=== PATIENT | female | born 2000 | race Caucasian/White ===

== ENCOUNTER 2019-12-25 14:04 | Emergency (ER) | payer OTHER, SELFPAY ==
[2019-12-25 14:33] VITALS: BP 101/71; PULSE 92; RESP 16; TEMP 37.3; O2SAT 99
--- NOTE | 2019-12-25 14:53 | ED.FEMALEGU ---
HPI - Female Genitourinary General Chief complaint: Urogenital-Female Stated complaint: rash Time Seen by Provider: 12/25/19 14:47 Source: patient and RN notes reviewed Mode of arrival: ambulatory Limitations: no limitations History of Present Illness HPI Narrative: Patient presents today complaining of one-week history of dysuria, frequency, lower abdominal pressure. Denies hematuria or fever. Patient states she was treated for bacterial vaginosis for topical MetroGel 2 weeks ago. Reports her symptoms improved, but feels like they worsened again. She has been taking Azo with some relief. She is also complaining of an intermittent pruritic rash and little bumps to her forearms, face, and back. Denies any changes in household products, medications, contact with plants or animals. MD elicited complaint: dysuria Related Data Home Medications Medication Instructions Recorded Confirmed escitalopram oxalate 07/17/19 07/17/19 ergocalciferol (vitamin D2) 12/25/19 ergocalciferol (vitamin D2) 12/25/19 [Vitamin D2] hydroxyzine HCl 12/25/19 metronidazole VAGINAL 12/25/19 Allergies Allergy/AdvReac Type Severity Reaction Status Date / Time Penicillins AdvReac Vomiting Verified 07/17/19 16:40 Review of Systems Review of Systems: Narrative: CONSTITUTIONAL: Denies body aches, fever, chills, or sweats. EYES: Denies visual changes, redness, or discharge. ENT: Denies rhinorrhea, congestion, sore throat, or otalgia. CARDIOVASCULAR: Denies chest pain, palpitations, or edema. RESPIRATORY: Denies cough or dyspnea. GASTROINTESTINAL: Denies abdominal pain, nausea, vomiting, or diarrhea. GENITOURINARY: Denies hematuria. + Dysuria, frequency, lower abdominal pressure SKIN: Denies itching, or wounds. + Rash MUSCULOSKELETAL: Denies back pain, joint pain, or myalgia. NEUROLOGIC: Denies headache, numbness, tingling, or weakness. PSYCH: Denies depression or anxiety. [facility] Social History Social History Gender identity (if verbalized by the patient): Female Comments At time of signature, I have reviewed and agree with nursing past medical, surgical, social and family history unless otherwise noted. Please see nursing chart for further information. There is no relevant family history pertinent to the presenting complaint Exam Narrative: Exam Narrative: GENERAL: Well-appearing, well-nourished, and in no acute distress. HEAD: Normocephalic, atraumatic. EYES: EOMI. No redness or drainage. Conjunctivae normal. ENT: Mucous membranes pink and moist. NECK: Normal AROM. Supple. No lymphadenopathy. ABD: Nontender, no distention, bowel sounds normal,-CVAT CHEST: No respiratory distress. EXTREMITIES: Normal range of motion. No edema. SKIN: Warm, dry. Capillary refill normal. Normal skin turgor. Very faint punctate papules to the anterior bilateral forearms, left upper back, and bilateral cheeks. No facial swelling noted. No erythema, induration, or drainage. NEURO: No focal deficits. Alert and oriented x3. Gait steady. PSYCH: Normal affect. No signs of depression or anxiety. Course Vital Signs Vital signs: Vital Signs Temperature 99.1 F 12/25/19 14:33 Pulse Rate 92 12/25/19 14:33 Respiratory Rate 16 12/25/19 14:33 Blood Pressure 101/71 12/25/19 14:33 Pulse Oximetry 99 12/25/19 14:33 Temperature 99.1 F 12/25/19 14:33 Pulse Rate 92 12/25/19 14:33 Respiratory Rate 16 12/25/19 14:33 Blood Pressure 101/71 12/25/19 14:33 Pulse Oximetry 99 12/25/19 14:33 Reviewed. Pt has been instructed to follow up with his PCP regarding his elevated blood pressure today. MDM - Female Genitourinary Differential Diagnosis Differential diagnosis: Likely urinary tract infection, bacterial vaginosis, vaginitis, cystitis and other (Contact dermatitis, heat rash) Lab Data Attestation: I reviewed the patient's lab results. Labs: Urine Glucose Negative Reference Range: Negative Urin
== END 2019-12-25 15:10 | disposition home or self-care (01) ==
PROVIDERS: Emergency Provider Nurse Practitioner
DX: R21 Rash and other nonspecific skin eruption (principal); N30.00 Acute cystitis without hematuria; F32.9 Major depressive disorder, single episode, unspecified; F41.9 Anxiety disorder, unspecified
CPT/HCPCS: 81003; 87077; 87086; 87088; 87186; 99213; G0463

== ENCOUNTER 2022-06-30 19:04 | Emergency (ER) | payer OTHER, MEDICAID, SELFPAY ==
--- NOTE | ~2022-06-30 | XR_ITS ---
EXAM: XR knee RT 3V DATE: 06/30/2022 19:37 HISTORY: diffuse rt knee pain x 1 week ? etiology . COMPARISON: None available. FINDINGS: Somewhat Limited lateral view. Normal mineralization. No fracture or dislocation. No lytic or blastic lesion. Joint spaces are maintained. No erosion or periosteal change. Soft tissues within normal limits. Small knee joint effusion. IMPRESSION: No acute osseous finding in the right knee. Reviewed, dictated and finalized at location K. [employer]
--- NOTE | 2022-06-30 19:09 | ED.LOWEXIN ---
HPI - Extremity Injury (Lower) General Chief Complaint: Extremity Injury, Lower Stated Complaint: Right Knee Pain Time Seen by Provider: 06/30/22 19:09 Source: patient Mode of arrival: ambulatory Limitations: no limitations History of Present Illness HPI Narrative: Coy is a 22-year-old female patient presenting to the clinic today with right knee pain x1 week. She reports she has a deep pain within the joint. No known injury. States she has been doing a lot more squatting and lifting with her child. States that she had the same pain a couple years ago and was diagnosed with a knee effusion. Has taken some ibuprofen without relief. Pain is worse with bearing weight in if she would is in a sitting/ laying position for too long. Related Data Home Medications Medication Instructions Recorded Confirmed vits 75-iron 28 mg-folic 1 pkg PO DAILY 06/30/22 06/30/22 acid 800 mcg-omega3 440 mg oral pack Allergies Allergy/AdvReac Type Severity Reaction Status Date / Time Penicillins AdvReac Vomiting Verified 06/30/22 19:14 Review of Systems Review of Systems: Pertinent positives per HPI. Patient denies any fever, chills, rash, headache, visual changes, dizziness, cough, runny nose, sore throat, shortness of breath, chest pain, palpitations, nausea, vomiting, diarrhea, constipation, abdominal pain, or any urinary issues. PMF[facility] Social History Social History Gender identity (if verbalized by the patient): Female Comments At the time of my signature, I reviewed and agree with the nursing past medical, surgical, social, and family history. There is no relevant family history pertinent to the patient complaint. Exam Narrative: General: Well-developed, well nourished, in no apparent distress Head: Normocephalic, atraumatic. Cardio: Regular rate and rhythm, s1 and s2 normal, no murmur appreciated. Resp: Clear to auscultation bilaterally, no rhonchi, rales, wheezing or rubs. Musculoskeletal: No deformity, non-tender to palpation, no crepitus, negative anterior and posterior drawer sign, negative valgus and varus testing, grossly normal range of motion, muscle strength strong and equal, peripheral pulse strong, no edema, no cyanosis, normal gait and station Course Course Emergency Course: Portions of this record may have been created with voice recognition software. Level of Care: Express Care Visit Vital Signs Vital signs: Vital Signs Temperature 37.1 C 06/30/22 19:14 Pulse Rate 91 06/30/22 19:14 Respiratory Rate 16 06/30/22 19:14 Blood Pressure 116/68 06/30/22 19:14 Pulse Oximetry 99 06/30/22 19:14 Oxygen Delivery Room Air 06/30/22 19:14 Temperature 37.1 C 06/30/22 19:15 Pulse Rate 91 06/30/22 19:15 Respiratory Rate 16 06/30/22 19:15 Blood Pressure 116/68 06/30/22 19:15 Pulse Oximetry 99 06/30/22 19:15 Oxygen Delivery Room Air 06/30/22 19:15 Vital signs reviewed MDM - Extremity Injury (Lower) MDM Narrative Medical decision making narrative: At the time of visit patient is resting comfortably on the exam table. X-rays negative for any sign of fracture or malalignment of the right knee. A patient has acute right knee pain with unknown etiology. Will send in prescription for naproxen for pain and supportive measures were discussed. Recommend follow-up with PCP if symptoms persist she may need an MRI of her knee. Differential Diagnosis Differential diagnosis: Likely acute internal derangement of knee and other ( Knee pain) Imaging Data Radiologist's impression: Close Knee X-Ray (Signed) Yasmani Zarate - 06/30/22 [facility] [address] [address] XRay Report Signed Patient: Coy Meneses : 2000 MR#: [id number] Age/Sex: 22 / F Acct:[id number] Loc: [facility]? ? ADM Date: 0
[2022-06-30 19:14] VITALS: BP 116/68; PULSE 91; RESP 16; TEMP 37.1; O2SAT 99
[2022-06-30 19:15] VITALS: BP 116/68; PULSE 91; RESP 16; TEMP 37.1; O2SAT 99
== END 2022-06-30 19:54 | disposition home or self-care (01) ==
PROVIDERS: Emergency Provider Nurse Practitioner Family
DX: M25.561 Pain in right knee (principal)
CPT/HCPCS: 73562; 99213; G0463

== ENCOUNTER 2022-12-31 18:27 | Emergency (ER) | payer OTHER, MEDICAID, SELFPAY ==
--- NOTE | ~2022-12-31 | XR_ITS ---
EXAMINATION: XR chest 2V DATE: 12/31/2022 18:58 INDICATION: Shortness of breath. TECHNIQUE: Frontal and lateral views of the chest were obtained. COMPARISON: None. FINDINGS: The chest demonstrates clear lungs without pneumonia, pleural effusion, or pneumothorax. Th e heart size is normal. IMPRESSION: 1. No acute cardiopulmonary disease. Reviewed, dictated and finalized at location E.
[2022-12-31 18:39] VITALS: BP 92/62; PULSE 115; RESP 16; TEMP 37.7; O2SAT 100
--- NOTE | 2022-12-31 18:43 | ED.URI ---
HPI - URI/Sore Throat General Chief Complaint: Upper Respiratory Infection Stated Complaint: Fever/Sore Throat Time Seen by Provider: 12/31/22 18:43 Source: patient Mode of arrival: ambulatory Limitations: no limitations History of Present Illness HPI Narrative: 22-year-old female presents complaint of fever, fatigue, headaches, body aches and chills for 2 days. Began having sore throat , runny nose today. Reports shortness shortness of breath like having an anxiety attack for the past 2 days. no respiratory distress noted. Denies cough. Patient taking ibuprofen Tylenol to treat symptoms. denies nausea vomiting diarrhea. No urinary symptoms. All systems reviewed and negative except as noted above. Related Data Home Medications Medication Instructions Recorded Confirmed No Home Medications 12/31/22 12/31/22 Allergies Allergy/AdvReac Type Severity Reaction Status Date / Time Penicillins AdvReac Vomiting Verified 12/31/22 18:37 Review of Systems Review of Systems: CONSTITUTIONAL: Reports fever, chills, or sweats. EYES: Denies visual changes, redness, or discharge. ENT: reports rhinorrhea, congestion, sore throat. Denies otalgia. CARDIOVASCULAR: Denies chest pain, palpitations, or edema. RESPIRATORY: Denies cough. Reports dyspnea. GASTROINTESTINAL: Denies abdominal pain, nausea, vomiting, or diarrhea. GENITOURINARY: Denies dysuria or hematuria. SKIN: Denies rash or itching. MUSCULOSKELETAL: Denies back pain, joint pain. Reports myalgia. NEUROLOGIC: reports headache. Denies numbness, or weakness. PSYCHIATRIC: Denies anxiety or depression. All other systems reviewed are negative, except as documented in HPI. PMFSH Social History Social History Gender identity (if verbalized by the patient): Female Comments At time of signature, agree with nursing past medical, surgical, social and family history. There is no relevant family history pertinent to the presenting complaint. Exam Narrative: GENERAL: This is a well-nourished, well-developed patient, in no apparent distress. HEAD: normocephalic, atraumatic. EYES: PERRL. Sclera clear/white. Vision is grossly intact. EARS: External ears normal, auditory canals clear and without drainage, TMs normal without perforation. Hearing grossly intact. NOSE: External nose normal with Clear nasal drainage, nares without redness, no rhinorrhea. THROAT: Mucous membranes moist, Mild erythema posterior pharynx clear. NECK: Neck supple, non-tender without lymphadenopathy, masses or thyromegaly. CARDIOVASCULAR: tachycardia without murmurs, gallops, or rubs. RESPIRATORY: Clear to auscultation. Breath sounds equal bilaterally. No wheezes, rales, or rhonchi. SKIN: warm, Dry, intact with no suspicious lesions or rash, good texture and turgor. NEURO: awake, alert, and oriented to person, place and time. There were no obvious focal neurologic abnormalities. EXTREMITIES: No joint tenderness, effusion, or edema noted. Course Course Level of Care: Express Care Visit Vital Signs Vital signs: Vital Signs Temperature 37.7 C H 12/31/22 18:39 Pulse Rate 115 H 12/31/22 18:39 Respiratory Rate 16 12/31/22 18:39 Blood Pressure 92/62 L 12/31/22 18:39 Pulse Oximetry 100 12/31/22 18:39 Oxygen Delivery Room Air 12/31/22 18:39 Temperature 37.7 C H 12/31/22 18:39 Pulse Rate 115 H 12/31/22 18:39 Respiratory Rate 16 12/31/22 18:39 Blood Pressure 92/62 L 12/31/22 18:39 Pulse Oximetry 100 12/31/22 18:39 Oxygen Delivery Room Air 12/31/22 18:39 reviewed MDM - URI/Sore Throat MDM Narrative Medical decision making narrative: Patient is aware of diagnosis, understands and agrees to treatment plan. Anticipatory guidance given. Patient agrees to follow-up as directed and is aware of reasons to seek care at the emergency department. Portions of this record may have been created
== END 2022-12-31 19:31 | disposition home or self-care (01) ==
PROVIDERS: Emergency Provider Nurse Practitioner Family
DX: B34.9 Viral infection, unspecified (principal); Z20.822 Contact with and (suspected) exposure to COVID-19
CPT/HCPCS: 71046; 87081; 87426; 87804; 87880; 99213; C9803; G0463

== ENCOUNTER 2024-09-21 12:27 | Emergency (ER) | payer OTHER, MEDICAID, SELFPAY ==
[2024-09-21 12:37] VITALS: BP 104/62; PULSE 102; RESP 20; TEMP 37.2; O2SAT 100
--- NOTE | 2024-09-21 13:14 | ED_ITS ---
HPI - Female Genitourinary General Chief complaint: Urogenital-Female Stated complaint: STD Source: patient and RN notes reviewed Mode of arrival: ambulatory Limitations: no limitations History of Present Illness HPI Narrative: 24-year-old female presents to the [facility] complaining of perineal pain. She reports her symptoms started 1-2 weeks ago. She reports having perineal discomfort and feels irritation near her anus. She says it does not hurt to touch but she reports that there is pain after she wipes after using the restroom. She says she had unprotected anal intercourse 3-4 weeks ago. She does report she has concerns for possible STDs from a partner. She denies any dysuria, burning with urination, vaginal discharge, vaginal irritation, vaginal itching, abdominal pain, fever, or any pain with vaginal intercourse Related Data Home Medications ?Medication ?Instructions ?Recorded ?Confirmed ?Last Taken ?Type escitalopram oxalate 5 mg tablet mg 09/21/24 Unknown History Allergies Allergy/AdvReac Type Severity Reaction Status Date / Time Penicillins AdvReac Vomiting Verified 09/21/24 12:30 Review of Systems Review of Systems: CONSTITUTIONAL: Denies fever, chills, or sweats. EYES: Denies visual changes, redness, or discharge. ENT: Denies rhinorrhea, congestion, sore throat, or otalgia. CARDIOVASCULAR: Denies chest pain, palpitations, or edema. RESPIRATORY: Denies cough or dyspnea. GASTROINTESTINAL: Denies abdominal pain, nausea, vomiting, or diarrhea. GENITOURINARY: Denies dysuria, vaginal pain, vaginal discharge, pain with intercourse, or hematuria. Positive for Perineal pain. SKIN: Denies rash or itching. MUSCULOSKELETAL: Denies back pain, joint pain, or myalgia. NEUROLOGIC: Denies headache, numbness, or weakness. PSYCHIATRIC: Denies anxiety or depression. All other systems reviewed are negative, except as documented in HPI. PMFSH Social History Social History Gender identity (if verbalized by the patient): Female Comments At the time of my signature, I reviewed and agree with the nursing past medical, surgical, social, and family history. There is no relevant family history pertinent to the patient complaint. Exam Narrative: GENERAL: This is a well-nourished, well-developed adult, in no apparent distress. They are non ill-appearing, nontoxic appearing. HEAD: normocephalic, atraumatic. EYES: Sclera clear/white. Vision is grossly intact. EARS: External ears normal, Hearing grossly intact. NOSE: External nose normal THROAT: Mucous membranes moist NECK: Neck supple CARDIOVASCULAR: Regular rate and rhythm without murmurs, gallops, or rubs. RESPIRATORY: Clear to auscultation. Breath sounds equal bilaterally. No wheezes, rales, or rhonchi. GASTROINTESTINAL: Abdomen soft, non-tender, nondistended. Bowel sounds are active. No hepato-splenomegaly, or palpable masses. No guarding. GENITALURINARY: There is superficial ulcerations present to the perineum around the anus. The ulcerations to the perineum appeared to be almost healed. There is no erythema or discharge from the ulcers. There is a tampon in place in the vagina, the rest of the vulva appears intact. No vaginal discharge is present. SKIN: warm, Dry, intact with no suspicious lesions or rash, good texture and turgor. NEURO: awake, alert, and oriented to person, place and time. There were no obvious focal neurologic abnormalities. EXTREMITIES: No joint tenderness, effusion, or edema noted. Course Course Level of Care: Express Care Visit Vital Signs Vital signs: Vital Signs Temperature 99 F 09/21/24 12:37 Pulse Rate 102 H 09/21/24 12:37 Respiratory Rate 20 09/21/24 12:37 Blood Pressure 104/62 09/21/24 12:37 Pulse Oximetry 100 09/21/24 12:37 Oxygen Delivery Room Air 09/21/24 12:37 Temperature 99 F 09/21/24 12:37 Pulse Rate 102 H 09/21/24 12:37 Respiratory Rate 20 09/21/24 12:37 Blood Pressure 104/62 09/21/24 12:37 Pulse Oximetry 100 09/21/24 12:37 Oxygen Delivery Room Air 09/21/24 12:37 Reviewed MDM - Female Genitourinary MDM Narrative Medical decision making narrative: Patient's ulcerations around her perineum anus were swabbed for herpes. Some of the ulcers around the perineum appear to have healed. She will be notified of the results of her herpes swab if it is positive. Her symptoms could be from trauma from anal intercourse. She is denying any vaginal symptoms or any other symptoms for STIs or urinary issues, vaginal exam was declined. No further STI testing is indicated at this time. Since her symptoms have been lasting longer than 2 weeks no antivirals were given. Anticipatory guidance given, in ED precautions discussed. Differential Diagnosis Differential diagnosis: Likely cyst of Bartholin's gland and other (Genital herpes, Fissure, STI) Lab Data Labs: Lab Results 09/21/24 Range/Units 13:12 Herpes Virus Source Pending Herpes Simplex Culture Pending Critical Care Time Critical Care Time Critical Care Time: No Discharge Plan Discharge Clinical Impression: Perineal irritation Patient Disposition: Home, Self-Care Condition: Stable Instructions: Genital Herpes Infection (ED) Additional Instructions: Your swab has been sent to the hospital and we will notify you if it comes back positive. You may apply Vaseline to the area for any discomfort. If your symptoms change or you have any other concerns please follow-up with your PCP or Obgyn. There is some educational information provided on genital herpes. Patient Language: Frisian Prescriptions: No Action escitalopram oxalate 5 mg tablet Follow-up/Referrals: PHYSICIAN,QUARRY PLUG AND FEATHER DRILLER [Primary Care Provider] -
== END 2024-09-21 13:25 | disposition home or self-care (01) ==
DX: R10.2 Pelvic and perineal pain (principal)
CPT/HCPCS: 87140; 87255; 99213; G0463

== ENCOUNTER 2024-10-08 10:37 | Emergency (ER) | payer OTHER, MEDICAID, SELFPAY ==
[2024-10-08 10:44] VITALS: BP 116/66; PULSE 84; RESP 18; TEMP 37.3; O2SAT 100
--- NOTE | 2024-10-08 12:11 | ED_ITS ---
HPI - General Adult General Chief complaint: Unspecified Stated complaint: med refill Time Seen by Provider: 10/08/24 11:00 Source: patient and RN notes reviewed Mode of arrival: ambulatory Limitations: no limitations History of Present Illness HPI narrative: 24-year-old female presents [facility] complaining rectal pain for 2 days. Patient was seen here recently had [facility] was diagnosed with rectal braxton donita herpes. She did not receive treatment last time due to her length of symptoms and her sores were resolving. She says she is here today requesting treatment before the symptoms get worse. She denies any rectal discharge. Patient also reports vaginal discharge and itchiness. She reports her discharge is thin, white and cloudy. She denies any foul-smelling or any vaginal irritation. She denies any chance of being are any recent sexual activity since her last visit. She denies any abdominal pain, vaginal bleeding, urinary symptoms, pain with intercourse, nausea, vomiting, fevers, chills, body aches. Related Data Home Medications ?Medication ?Instructions ?Recorded ?Confirmed ?Last Taken ?Type escitalopram oxalate 5 mg tablet mg 09/21/24 Unknown History Allergies Allergy/AdvReac Type Severity Reaction Status Date / Time Penicillins AdvReac Vomiting Verified 09/21/24 12:30 Review of Systems Review of Systems: CONSTITUTIONAL: Denies fever, chills, or sweats. EYES: Denies visual changes, redness, or discharge. ENT: Denies rhinorrhea, congestion, sore throat, or otalgia. CARDIOVASCULAR: Denies chest pain, palpitations, or edema. RESPIRATORY: Denies cough or dyspnea. GASTROINTESTINAL: Denies abdominal pain, nausea, vomiting, or diarrhea. GENITOURINARY: Denies dysuria, vaginal bleeding, pain with intercourse, or hematuria. Positive for vaginal discharge vaginal itching, and rectal pain. SKIN: Denies rash or itching. MUSCULOSKELETAL: Denies back pain, joint pain, or myalgia. NEUROLOGIC: Denies headache, numbness, or weakness. PSYCHIATRIC: Denies anxiety or depression. All other systems reviewed are negative, except as documented in HPI. [facility] Past Medical History Medical History Herpes genitalis in women Social History Social History (Reviewed 10/08/24 @ 12:18 by BHAVESH Mcgovern Gender identity (if verbalized by the patient): Female Comments At the time of my signature, I reviewed and agree with the nursing past medical, surgical, social, and family history. There is no relevant family history pertinent to the patient complaint. Exam Narrative: GENERAL: This is a well-nourished, well-developed adult, in no apparent distress. They are non ill-appearing, nontoxic appearing. HEAD: normocephalic, atraumatic. EYES: Sclera clear/white. Vision is grossly intact. EARS: External ears normal, Hearing grossly intact. NOSE: External nose normal THROAT: Mucous membranes moist, NECK: Normal range of motion CARDIOVASCULAR: Regular rate and rhythm RESPIRATORY: Normal respiratory rate, respiratory effort is nonlabored common no respiratory distress GASTROINTESTINAL: Abdomen soft, non-tender, nondistended. No hepato- splenomegaly, or palpable masses. No guarding. GENITOURINARY: Rectum: There is redness and swelling to the to the rectum around the 4 o'clock region. No ulcerations or discharge present. No induration area of fluctuance. External Vagina: Vulva normal. No obvious discharge. Pelvic exam: Vaginal canal without redness, swelling or suspicious lesions. Vaginal canal is clear without obstruction. Cervix is pink with mild swelling. There is a white vaginal discharge present that is thin and cloudy in appearance. No foul smell present. Ovaries are not palpable through bimanual exam, no tenderness to palpation. There is no vaginal bleeding SKIN: warm, Dry, intact with no suspicious lesions or rash, good texture and turgor. NEURO: awake, alert, and oriented to person, place and time. There were no obvious focal neurologic abnormalities. EXTREMITIES: No joint tenderness, effusion, or edema noted. BACK: Nontender without deformity. No CVA tenderness. Course Course Level of Care: [facility] Visit Vital Signs Vital signs: Vital Signs Temperature 99.2 F 10/08/24 10:44 Pulse Rate 84 10/08/24 10:44 Respiratory Rate 18 10/08/24 10:44 Blood Pressure 116/66 10/08/24 10:44 Pulse Oximetry 100 10/08/24 10:44 Temperature 99.2 F 10/08/24 10:44 Pulse Rate 84 10/08/24 10:44 Respiratory Rate 18 10/08/24 10:44 Blood Pressure 116/66 10/08/24 10:44 Pulse Oximetry 100 10/08/24 10:44 Reviewed Medical Decision Making MDM Narrative Medical decision making narrative: Patient was offered a pelvic exam and she agreed. She also would like like to be swabbed for STIs and other vaginal infections. [employer] present in the room during pelvic exam with Fabiola RUFF. Vaginal swabs obtained and pending. No obvious signs of infection during vaginal exam. Patient would like to wait for vaginal swab results before receiving any other treatments. There is no obvious ulcerations or lesions to the patient's rectum. However there is redness, swelling, tenderness. Given the patient's recent positive herpes results, I will go ahead and treat empirically with acyclovir for herpes flare up. Patient does have a follow-up appointment with her PCP for further evaluation for herpes. Di scussed physical exam findings. Advised supportive measures and signs/symptoms to go to the ER. Pt is appropriate for outpt treatment and f/u. Differential Diagnosis Differential Diagnosis: Herpes infection, STD, yeast infection, bacterial vaginosis. Vital Signs Vital Signs: Vital Signs Temperature 99.2 F 10/08/24 10:44 Pulse Rate 84 10/08/24 10:44 Respiratory Rate 18 10/08/24 10:44 Blood Pressure 116/66 10/08/24 10:44 Pulse Oximetry 100 10/08/24 10:44 Temperature 99.2 F 10/08/24 10:44 Pulse Rate 84 10/08/24 10:44 Respiratory Rate 18 10/08/24 10:44 Blood Pressure 116/66 10/08/24 10:44 Pulse Oximetry 100 10/08/24 10:44 Lab Data Lab results narrative: Vaginal swabs and cultures are pending. Critical Care Time Critical Care Time Critical Care Time: No Discharge Plan Discharge Clinical Impression: Anal or rectal pain, Vaginal discharge Patient Disposition: Home Condition: Stable Instructions: Antibiotic Form, Genital Herpes Infection (ED), Sexually Transmitted Diseases (ED) Additional Instructions: Please take the acyclovir as directed for herpes. We will contact you if any of your vaginal swabs are positive. If any any swabs are positive for sexual transmitted disease or other vaginal infections you will be contacted and placed on appropriate antibiotic treatment. Please go to the ER if he develops any abdominal pain, fevers, or worsening symptoms. Please follow-up with your PCP or OBGYN in 3-5 days. Patient Language: Estonian Prescriptions: New acyclovir 800 mg tablet 800 mg PO TID 2 Days Qty: 6 0RF No Action escitalopram oxalate 5 mg tablet Follow-up/Referrals: PHYSICIAN NOT ON STAFF,NONSTAFF [Primary Care Provider] - Time of Disposition: 11:48
[2024-10-08 19:25] LABS: Trichomonas Vag PCR NOT DETECTED (NOT DETECTE)
[2024-10-08 19:51] LABS: Chlamydia trachomatis NOT DETECTED (NOT DETECTE); Neisseria gonorrhoeae PCR NOT DETECTED (NOT DETECTE)
[2024-10-10 14:53] LABS: Bacterial Vaginosis POSITIVE (NEGATIVE)
[2024-10-12 15:03] LABS: Source NOT GIVEN
== END 2024-10-08 11:58 | disposition home or self-care (01) ==
DX: K62.89 Other specified diseases of anus and rectum (principal); N76.0 Acute vaginitis; Z11.3 Encounter for screening for infections with a predominantly sexual mode of transmission
CPT/HCPCS: 81513; 87070; 87140; 87255; 87491; 87591; 87661; 99213; G0463